=== PATIENT | female | born 2000 | race Caucasian/White ===

== ENCOUNTER 2025-01-23 09:45 | Emergency (ER) | payer OTHER, SELFPAY ==
[2025-01-23 09:53] VITALS: BP 111/59; PULSE 70; RESP 14; TEMP 36.9; O2SAT 97; BMI 28.9
[2025-01-23 10:34] LABS: Alanine Aminotransferase 19 IU/L (<35)
[2025-01-23 11:17] LABS: Hepatitis B Surface Antigen NEGATIVE s/c (NEGATIVE)
--- NOTE | 2025-01-23 11:24 | ED_ITS ---
HPI - General Adult General Chief complaint: Blood/Body fluid exposure Stated complaint: Needle stick Time Seen by Provider: 01/23/25 11:24 Mode of arrival: Ambulatory History of Present Illness HPI narrative: 24-year-old female presents to the ED status post an accidental needlestick injury sustained at work just prior to arrival. Patient was trying to draw blood from a patient, when she accidentally stuck her left index fingertip after she withdrew the needle from patient. Patient was wearing gloves, felt it just a tiny bit. In the ED, there is no visible puncture chelle or injury to the patient's left index finger. Patient did wash her hands thoroughly after the incident. No other complaints at this time. Health information of source of the needlestick injury unknown. Related Data Allergies Allergy/AdvReac Type Severity Reaction Status Date / Time No Known Drug Allergies Allergy Verified 01/23/25 09:53 Review of Systems Constitutional Constitutional: Denies chills, Denies fatigue, Denies fever(s), Denies frequent falls, Denies lethargy and Denies weakness Eyes Eyes: Denies change in vision, Denies eye discharge, Denies irritation and Denies loss of vision ENT Ears, Nose, Mouth, and Throat: Denies change in voice, Denies dizziness, Denies neck pain, Denies sore throat and Denies throat swelling Cardiovascular Cardiovascular: Denies chest pain, Denies irregular heart rhythm, Denies lightheadedness, Denies palpitations, Denies dyspnea, Denies dyspnea on exertion and Denies orthopnea Respiratory Respiratory: Denies cough, Denies dyspnea, Denies dyspnea on exertion and Denies wheezing Gastrointestinal Gastrointestinal: Denies abdominal pain, Denies change in bowel habits, Denies diarrhea, Denies nausea and Denies vomiting Musculoskeletal Musculoskeletal: Denies neck pain and Denies numbness Integumentary/Breasts Skin/Breast: Denies pruritus, Denies erythema, Denies rash and Denies wounds Comments: Left index finger tip needle stick Neurologic Neurologic: Denies behavioral changes, Denies confusion, Denies dizziness, Denies frequent falls, Denies loss of vision, Denies numbness and Denies weakness Psychiatric Psychiatric: Denies anxiety, Denies behavioral changes, Denies confusion, Denies depression, Denies homicidal ideation and Denies suicidal ideation Endocrine Endocrine: Denies fatigue, Denies flushing and Denies palpitations Hematologic/Lymphatic Hematologic/Lymphatic: Denies easy bruising Allergic/Immunologic Allergic/Immunologic: Denies urticaria, Denies throat swelling and Denies wheezing Exam Narrative Exam Narrative: Const General:?cooperative, healthy appearing and comfortable [facility] Head:?normal to inspection Ears:?hearing grossly normal bilaterally Nose:?external nose normal Face and sinus:?normal facial exam and sinuses nontender Mouth:?oral mucosae normal Throat:?posterior oropharynx normal Eyes General:?appearance normal, both eyes and all related structures Neck Neck:?normal visual inspection and no lymphadenopathy noted Resp Effort & Inspection:?normal respiratory effort Auscultation:?clear to auscultation bilaterally Cardio Rate:?regular rate Rhythm:?regular rhythm Integumentary Tip of left index finger appears normal with no signs of puncture or injury. Neuro General:?patient alert, patient awake and patient oriented x3 Initial Vital Signs Initial Vital Signs: Vital Signs Temperature 98.5 F 01/23/25 09:53 Pulse Rate 70 01/23/25 09:53 Respiratory Rate 14 01/23/25 09:53 Blood Pressure 111/59 L 01/23/25 09:53 Pulse Oximetry 97 01/23/25 09:53 Oxygen Delivery Method Room Air 01/23/25 09:53 Course Vital Signs Vital signs: Vital Signs - 8 hr 01/23/25 09:53 Temperature 98.5 F Pulse Rate 70 Respiratory Rate 14 Blood Pressure 111/59 L Pulse Oximetry 97 Oxygen Delivery Method Room Air Medical Decision Making Lab Data Labs: Lab Results 01/23/25 Range/Units 10:11 ALT 19 (<35) IU/L Hep Bs Antigen Negative (NEGATIVE) s/c Hepatitis C Antibody Negative (NEGATIVE) s/c HIV 1&2 Ab/P24 Ag 4thGn Negative (NEGATIVE) MDM Narrative Medical decision making narrative: 24-year-old female presents to the ED status post an accidental needlestick injury sustained at work just prior to arrival. HIV test, hepatitis-C antibody, hepatitis-B antigen were negative. hepatitis-B antibody is still pending, and patient will be notified of results, if abnormal. counseled patient on needlestick injury. In discussion with patient, agreement was to refrain from any HIV PEP at this time. Patient to follow-up with employee health as soon as possible. ED return precautions discussed with patient. Patient verbalized understanding. Medical records reviewed: Yes Discharge Plan Departure Patient Disposition: Home Clinical Impression: Needlestick injury accident Instructions: DI for Accidental Exposure to Body Fluids Activity Restrictions/Additional Instructions: You were evaluated in the ED today for a needlestick injury. The routine labs were performed. your HIV test, hepatitis-C antibody, hepatitis-B antigen were negative. hepatitis-B antibody is still pending and results will be available in 2 days. Given the magnitude of your exposure today, there is a low risk of transmission of infection. Please follow-up with employee health as soon as possible. Return to the ED if you have any worsening symptoms. Stand Alone Forms: Patient Portal/API/Survey
[2025-01-23 11:26] LABS: HIV 1 & 2 Ab/Ag 4th Gen Combo NEGATIVE (NEGATIVE); Hep C Virus Ab w/Reflex Quant NEGATIVE s/c (NEGATIVE)
[2025-01-24 05:19] LABS: Hepatitis B Surf Ab Qualitativ Non Reactive (.)
== END 2025-01-23 11:51 | disposition home or self-care (01) ==
PROVIDERS: Family Medicine; Emergency Provider Student in an Organized Health Care Education/Training Program
DX: Z77.21 Contact with and (suspected) exposure to potentially hazardous body fluids (principal); W46.0XXA Contact with hypodermic needle, initial encounter
CPT/HCPCS: 36415; 99283